=== PATIENT | female | born 1955 | race Caucasian/White ===

== ENCOUNTER 2020-12-02 15:34 | Emergency (ER) | payer MEDICARE, OTHER, SELFPAY ==
--- NOTE | 2020-12-02 15:42 | ED.FEMALEGU ---
HPI - Female Genitourinary General Chief complaint: Urogenital-Female Stated complaint: Urogenital-Female Time Seen by Provider: 12/02/20 15:43 Source: patient and RN notes reviewed History of Present Illness HPI Narrative: Patient is a 65-year-old female who presents the urgent care with complaints of a possible UTI. Patient states it started 2 days ago and is worsened today. Patient states that she is seen blood in the urine and also complains of frequency, urgency, dysuria and decreased urinary amounts. Patient states she does have a history of UTIs and typically gets 1/year . Patient states that her last UTI was approximately last December. Currently denies of any fever, chills, nausea, vomiting, back pain. No other acute complaints. No acute distress noted. Patient aware of the plan of care. Some parts of this dictation were generated by voice recognition software and may contain typographical and/or grammatical inaccuracies. Related Data Home Medications Medication Instructions Recorded Confirmed alendronate 70 mg PO WEEKLY 12/02/20 12/02/20 atorvastatin 10 mg PO DAILY 12/02/20 12/02/20 bupropion HCl 150 mg PO BID 12/02/20 12/02/20 clonazepam 1 mg PO DAILY 12/02/20 12/02/20 levothyroxine [Euthyrox] 88 mcg PO DAILY 12/02/20 12/02/20 ziprasidone HCl 60 mg PO BID 12/02/20 12/02/20 Allergies Allergy/AdvReac Type Severity Reaction Status Date / Time No Known Allergies Allergy Verified 12/02/20 15:57 Review of Systems Review of Systems: Narrative: CONSTITUTIONAL: Denies fever, chills, or sweats. EYES: Denies visual changes, redness, or discharge. ENT: Denies rhinorrhea, congestion, sore throat, or otalgia. CARDIOVASCULAR: Denies chest pain, palpitations, or edema. RESPIRATORY: Denies cough or dyspnea. GASTROINTESTINAL: Denies abdominal pain, nausea, vomiting, or diarrhea. GENITOURINARY: Reports of frequency, urgency, suprapubic pressure, mild hematuria, dysuria and decreased urinary amounts SKIN: Denies rash or itching. MUSCULOSKELETAL: Denies back pain, joint pain, or myalgia. NEUROLOGIC: Denies headache, numbness, or weakness. All other systems reviewed are negative, except as documented in HPI. PMFSH Comments At the time of my signature, I reviewed and agree with the nursing past medical, surgical, social, and family history. There is no relevant family history pertinent to the patient complaint. Exam Narrative: Exam Narrative: GENERAL: This is a well-nourished, well-developed patient, in no apparent distress. HEAD: normocephalic, atraumatic. EYES: PERRL. Sclera clear/white. Vision is grossly intact. EARS: External ears normal NOSE: External nose normal with no obvious nasal discharge, nares without redness, no rhinorrhea. THROAT: Mucous membranes moist NECK: Neck supple GASTROINTESTINAL: Abdomen soft, mild suprapubic tenderness, nondistended. SKIN: warm, intact with no suspicious lesions or rash, good texture and turgor. NEURO: awake, alert, and oriented to person, place and time. There were no obvious focal neurologic abnormalities. EXTREMITIES: No clubbing, cyanosis, or edema. BACK: Bilateral CVA tenderness Course Vital Signs Vital signs: Vital Signs Temperature 96.9 F L 12/02/20 15:47 Pulse Rate 65 12/02/20 15:47 Respiratory Rate 14 12/02/20 15:47 Blood Pressure 139/64 12/02/20 15:47 Pulse Oximetry 100 12/02/20 15:47 Temperature 96.9 F L 12/02/20 15:47 Pulse Rate 65 12/02/20 15:47 Respiratory Rate 14 12/02/20 15:47 Blood Pressure 139/64 12/02/20 15:47 Pulse Oximetry 100 12/02/20 15:47 Reviewed MDM - Female Genitourinary MDM Narrative Medical decision making narrative: Reviewed lab results with the patient. She is aware that urine analysis is indicative of a urinary tract infection. We will culture the urine and call if medication needs to be changed, based on culture results. Advised the patient to use the Pyridium as directed for bladder spasms and dysuria.
[2020-12-02 15:47] VITALS: BP 139/64; PULSE 65; RESP 14; TEMP 36.1; O2SAT 100
== END 2020-12-02 16:20 | disposition home or self-care (01) ==
PROVIDERS: Emergency Provider Nurse Practitioner Family; PCP Internal Medicine
DX: N39.0 Urinary tract infection, site not specified (principal); E78.00 Pure hypercholesterolemia, unspecified; M81.0 Age-related osteoporosis without current pathological fracture; Z85.820 Personal history of malignant melanoma of skin; F41.9 Anxiety disorder, unspecified
CPT/HCPCS: 81003; 87077; 87086; 87088; 87186; 99213; G0463

== ENCOUNTER 2021-03-22 11:38 | Emergency (ER) | payer MEDICARE, OTHER, SELFPAY ==
--- NOTE | ~2021-03-22 | XR_ITS ---
EXAMINATION: XR elbow LT min 3V DATE: 03/22/2021 12:01 INDICATION: Posterior left elbow pain post fall TECHNIQUE: Anteroposterior, two oblique and lateral views of the left elbow were obtained. COMPARISON: None. FINDINGS: Alignment is normal. No fracture or joint effusion. Joint spaces are normal. Soft tissues are unremar kable. IMPRESSION: 1. Negative left elbow radiographs. Reviewed, dictated and finalized at location A.
[2021-03-22 11:44] VITALS: BP 118/58; PULSE 93; RESP 16; TEMP 37; O2SAT 99
--- NOTE | 2021-03-22 11:45 | ED.UPPEXIN ---
HPI - Extremity Injury (Upper) General Chief Complaint: Extremity Injury, Upper Stated Complaint: Left Elbow injury Time Seen by Provider: 03/22/21 11:45 Source: patient and RN notes reviewed History of Present Illness HPI narrative: Patient is a 65-year-old female who presents the urgent care with complaints of left elbow pain. Patient states that she fell on Monday after her dog wrapped her around a table . Patient states she fell on the grass and denies hitting her head or any loss of consciousness. Denies of any other injuries during the fall. Patient has been using ibuprofen for the pain. Patient is right-hand dominant. No other acute complaints. No acute distress noted. Patient aware of the plan of care. Some parts of this dictation were generated by voice recognition software and may contain typographical and/or grammatical inaccuracies. Related Data Home Medications Medication Instructions Recorded Confirmed alendronate 70 mg PO WEEKLY 12/02/20 03/22/21 atorvastatin 10 mg PO DAILY 12/02/20 03/22/21 bupropion HCl 150 mg PO BID 12/02/20 03/22/21 clonazepam 1 mg PO DAILY 12/02/20 03/22/21 levothyroxine [Euthyrox] 88 mcg PO DAILY 12/02/20 03/22/21 ziprasidone HCl 60 mg PO BID 12/02/20 03/22/21 Allergies Allergy/AdvReac Type Severity Reaction Status Date / Time No Known Allergies Allergy Verified 03/22/21 11:53 Review of Systems Review of Systems: Narrative: CONSTITUTIONAL: Denies fever, chills, or sweats. EYES: Denies visual changes, redness, or discharge. ENT: Denies rhinorrhea, congestion, sore throat, or otalgia. CARDIOVASCULAR: Denies chest pain, palpitations, or edema. RESPIRATORY: Denies cough or dyspnea. GASTROINTESTINAL: Denies abdominal pain, nausea, vomiting, or diarrhea. GENITOURINARY: Denies dysuria or hematuria. SKIN: Denies rash or itching. MUSCULOSKELETAL: Reports of left elbow pain NEUROLOGIC: Denies headache, numbness, or weakness. All other systems reviewed are negative, except as documented in HPI. PMFSH Comments At the time of my signature, I reviewed and agree with the nursing past medical, surgical, social, and family history. There is no relevant family history pertinent to the patient complaint. Exam Narrative: Exam Narrative: GENERAL: This is a well-nourished, well-developed patient, in no apparent distress. HEAD: normocephalic, atraumatic. EYES: PERRL. Sclera clear/white. Vision is grossly intact. EARS: External ears normal NOSE: External nose normal with no obvious nasal discharge, nares without redness, no rhinorrhea. THROAT: Mucous membranes moist NECK: Neck supple CARDIOVASCULAR: Regular rate and rhythm without murmurs, gallops, or rubs. RESPIRATORY: Clear to auscultation. Breath sounds equal bilaterally. No wheezes, rales, or rhonchi. SKIN: warm, intact with no suspicious lesions or rash, good texture and turgor. NEURO: awake, alert, and oriented to person, place and time. There were no obvious focal neurologic abnormalities. EXTREMITIES: No obvious deformity noted to the left upper extremity. Difficulty with range of motion due to pain. Increase pain with internal rotation of the left upper extremity. Positive strong left radial pulse with capillary refill less than 2 seconds. Course Vital Signs Vital signs: Vital Signs Temperature 98.6 F 03/22/21 11:44 Pulse Rate 93 03/22/21 11:44 Respiratory Rate 16 03/22/21 11:44 Blood Pressure 118/58 L 03/22/21 11:44 Pulse Oximetry 99 03/22/21 11:44 Temperature 98.6 F 03/22/21 11:44 Pulse Rate 93 03/22/21 11:44 Respiratory Rate 16 03/22/21 11:44 Blood Pressure 118/58 L 03/22/21 11:44 Pulse Oximetry 99 03/22/21 11:44 Reviewed MDM - Extremity Injury (Upper) MDM Narrative Medical decision making narrative: Reviewed x-ray results with the patient. She is aware that x-ray was negative for any fracture or deformity. Advised the patient to use an Raoul wrap for comfort and support. Use ice as n
== END 2021-03-22 12:20 | disposition home or self-care (01) ==
PROVIDERS: Emergency Provider Nurse Practitioner Family; PCP Internal Medicine
DX: S50.02XA Contusion of left elbow, initial encounter (principal); W19.XXXA Unspecified fall, initial encounter; E78.00 Pure hypercholesterolemia, unspecified; M81.0 Age-related osteoporosis without current pathological fracture; E89.0 Postprocedural hypothyroidism; F41.9 Anxiety disorder, unspecified; F31.9 Bipolar disorder, unspecified
CPT/HCPCS: 73080; 99213; G0463

== ENCOUNTER 2023-04-29 18:59 | Emergency (ER) | payer MEDICARE, OTHER, SELFPAY ==
[2023-04-29 19:10] VITALS: BP 119/61; PULSE 72; RESP 16; TEMP 36.7; O2SAT 100
--- NOTE | 2023-04-29 19:24 | ED.FEMALEGU ---
HPI - Female Genitourinary General Chief complaint: Urogenital-Female Stated complaint: Poss UtI Time Seen by Provider: 04/29/23 19:25 Source: patient, RN notes reviewed and old records reviewed Mode of arrival: ambulatory Limitations: no limitations History of Present Illness HPI Narrative: 67-year-old female presents to the [facility] with concerns she might have a UTI. Patient reports urgency, burning, frequency as well as cramping in the bladder area since this morning. No treatment prior to arrival. Denies abdominal pain, chest pain, back pain, CVA tenderness. Denies fevers, nausea vomiting or diarrhea. Related Data Home Medications Medication Instructions Recorded Confirmed alendronate 70 mg tablet 70 mg PO WEEKLY 12/02/20 04/29/23 atorvastatin 10 mg tablet 10 mg PO DAILY 12/02/20 04/29/23 bupropion HCl 150 mg tablet,12 hr 150 mg PO BID 12/02/20 04/29/23 sustained-release clonazepam 1 mg tablet 1 mg PO DAILY 12/02/20 04/29/23 levothyroxine 88 mcg tablet 88 mcg PO DAILY 12/02/20 04/29/23 (Euthyrox) ziprasidone HCl 60 mg capsule 60 mg PO BID 12/02/20 04/29/23 Allergies Allergy/AdvReac Type Severity Reaction Status Date / Time No Known Allergies Allergy Verified 04/29/23 19:31 Review of Systems Review of Systems: All systems reviewed & are unremarkable except as noted in HPI and below Constitutional: Constitutional: Reports no additional constitutional complaints Eyes: Eyes: Reports no additional eye complaints ENT: Reports system reviewed and no additional complaints, except as documented Cardiovascular: Cardiovascular: Reports no additional cardiovascular complaints, Denies chest pain and Denies dyspnea Respiratory: Respiratory: Reports no additional respiratory complaints, Denies chest congestion, Denies cough and Denies dyspnea Gastrointestinal: Gastrointestinal: Reports no additional gastrointestinal complaints, Denies abdominal pain, Denies nausea and Denies vomiting Genitourinary: Genitourinary: Reports as per HPI Musculoskeletal: Musculoskeletal: Reports no additional musculoskeletal complaints Integumentary/Breasts: Skin/Breast: Reports system reviewed and no additional complaints, except as docu Neurologic: Reports system reviewed and no additional complaints, except as documented Psychiatric: Psychiatric: Reports no additional psychiatric complaints Allergic/Immunologic: Allergic/Immunologic: Reports no additional allergic/immunologic complaints PMFSH Comments At the time of my signature, I reviewed and agree with the nursing past medical, surgical, social, and family history. There is no relevant family history pertinent to the patient complaint. Exam Const: General: cooperative, healthy appearing, comfortable, no acute distress, well developed, alert and well nourished Nutritional Appearance: well nourished Orientation/consciousness: patient oriented x3 Limitations: no limitations HENMT: Head: normal to inspection Ears: hearing grossly normal bilaterally and external ears normal Face/Nose/Sinus: Normal external nose present, Normal nares present, Normal nasal mucous membranes and turbinates present and normal facial exam Face and sinus: normal facial exam Eyes: General: appearance normal, both eyes and all related structures Alignment and Position: alignment normal Periorbital: periorbital findings normal Pupils: Equal, round and reactive pupils present EOM: EOMs intact bilaterally Neck: Neck: normal visual inspection, full ROM, no lymphadenopathy and no meningeal signs Chest: Chest palpation & inspection: normal inspection of the chest Resp: Effort & Inspection: normal respiratory effort and able to speak in complete sentences Cardio: Rate: regular rate Rhythm: regular rhythm Back/Spine/Pelvis: Cervical Spine: cervical ROM normal Thoracic/Lumbar Spine: No thoracic spinal tenderness Skin: General skin exam: normal color and no rashes or lesions noted Lesions: no l
== END 2023-04-29 19:33 | disposition home or self-care (01) ==
PROVIDERS: Emergency Provider Nurse Practitioner; PCP Internal Medicine
DX: N30.01 Acute cystitis with hematuria (principal); E78.00 Pure hypercholesterolemia, unspecified; M81.0 Age-related osteoporosis without current pathological fracture; E89.0 Postprocedural hypothyroidism; Z85.850 Personal history of malignant neoplasm of thyroid; Z85.820 Personal history of malignant melanoma of skin; F41.9 Anxiety disorder, unspecified; F31.9 Bipolar disorder, unspecified
CPT/HCPCS: 81003; 87086; 87088; 99213; G0463